=== PATIENT | female | born 1965 | race African-American/Black ===

== ENCOUNTER 2025-03-15 06:41 | Emergency (ER) | payer OTHER ==
[~2025-03-15] VITALS: Ht 162.6 cm; Wt 82.1 kg
[2025-03-15 06:52] VITALS: O2SAT 100
[2025-03-15] MEDS: ACETAMINOPHEN 325MG TABLET PO ONE (07:30)
[2025-03-15 09:35] VITALS: BP 135/88; PULSE 79; RESP 16; TEMP 37; O2SAT 100
== END 2025-03-15 09:38 | disposition home or self-care (01) ==
LOC: ER 06:41
DX: S09.90XA Unspecified injury of head, initial encounter (principal); J45.909 Unspecified asthma, uncomplicated; Z90.49 Acquired absence of other specified parts of digestive tract; X58.XXXA Exposure to other specified factors, initial encounter; Y93.89 Activity, other specified; Y92.89 Other specified places as the place of occurrence of the external cause; Y99.8 Other external cause status
CPT/HCPCS: 70486; 99284